=== PATIENT | male | born 2000 | race Hispanic/Latino ===

== ENCOUNTER 2020-12-16 03:33 | Emergency (ER) | payer BC ==
[2020-12-16] MEDS ORDERED: Ondansetron PF 4 MG/2 ML Vial ONE (03:46)
== END 2020-12-16 10:49 | disposition home or self-care (01) ==
LOC: ERS 03:33
DX: F10.129 Alcohol abuse with intoxication, unspecified (principal)
CPT/HCPCS: 93005; 96374; J2405